=== PATIENT | male | born 1990 | race Caucasian/White ===

== ENCOUNTER 2019-07-09 08:36 | Emergency (ER) | payer OTHER ==
[2019-07-09 08:44] VITALS: Ht 177.8 cm
[2019-07-09 09:16] LABS: RED CELL DISTRIBUTION WIDTH 15.8 % (11.5-14.5)
[2019-07-09 09:19] LABS: PLATELET COUNT 765 x10^3mcL (130-400)
[2019-07-09 09:24] LABS: CALCIUM 8.4 mg/dL (8.5-10.1); CARBON DIOXIDE 20.9 mmol/L (21-32); CHLORIDE SERUM 108 mmol/L (98-107); GFR1 > 60 mL/min; GLUCOSE SERUM 205 mg/dL (74-106); POTASSIUM SERUM 4.4 mmol/L (3.5-5.1); SODIUM SERUM 141 mmol/L (136-145)
[2019-07-09 09:34] LABS: ALBUMIN 2.8 g/dL (3.4-5.0); ALKALINE PHOSPHATASE 97 U/L (46-116); ALT/SGPT 81 U/L (16-63); AST/SGOT 43 U/L (15-37); BILIRUBIN TOTAL 0.3 mg/dL (0.20-1.00); C REACTIVE PROTEIN 0.9 mg/dL (<=0.9); TOTAL PROTEIN, SERUM 6.8 g/dL (6.4-8.2)
[2019-07-09 09:35] LABS: CK-MB < 0.5 ng/mL (0-3.6); CREATINE KINASE 13 U/L (39-308)
[2019-07-09 09:43] LABS: T3 TOTAL 0.96 ng/mL
[2019-07-09 09:44] LABS: FREE T4 1.07 ng/dL (0.76-1.46); FREE THYROXINE INDEX 3.3 ug/dL (1.4-4.5); T4(THYROXINE) 9.3 ug/dL (4.7-13.3)
[2019-07-09 09:51] LABS: BAND NEUTROPHIL 4 % (0-10); BASOPHIL 0 % (0-2); MONOCYTE 5 % (0-7); SEGMENTED NEUTROPHILS 87 % (37-75)
[2019-07-09 09:52] LABS: rbc morphology (normal/abnorm) NORMAL (NORMAL)
[2019-07-09 10:22] LABS: ERYTHROCYTE SED RATE 41 mm/hr (0-15)
[2019-07-09 10:36] LABS: microscopic required? YES; urine erythrocyte NEGATIVE (NEGATIVE)
[2019-07-09 11:15] VITALS: BP 108/68
[2019-07-09 12:06] LABS: AMPHETAMINE QUAL UR NONE DETECTED (See below)
== END 2019-07-09 11:15 | disposition short-term general hospital (02) ==
LOC: ED 08:36
PROVIDERS: Specialist
DX: S22.32XA Fracture of one rib, left side, initial encounter for closed fracture (principal); S20.212A Contusion of left front wall of thorax, initial encounter; S36.09XD Other injury of spleen, subsequent encounter; Y04.8XXD Assault by other bodily force, subsequent encounter; K66.1 Hemoperitoneum; D64.9 Anemia, unspecified; F11.23 Opioid dependence with withdrawal; F17.210 Nicotine dependence, cigarettes, uncomplicated; Z71.6 Tobacco abuse counseling; Z88.0 Allergy status to penicillin; Z86.19 Personal history of other infectious and parasitic diseases
CPT/HCPCS: 36600; 84439; 87804; 99406; J1956; J2405; J3010; J7030; Q9967